=== PATIENT | female | born 1965 | race Caucasian/White ===

== ENCOUNTER 2024-01-11 09:18 | Outpatient (CLI) | payer BC, SELFPAY ==
--- NOTE | 2024-01-11 11:11 | W.ANESCHARGE ---
Anesthesia Charges Start Date/Time Anesthesia Start Date: 01/11/24 Anesthesia Start Time: 10:16 Stop Date/Time Anesthesia Stop Date: 01/11/24 Anesthesia Stop Time: 11:02
== END 2024-01-11 09:19 | disposition home or self-care (01) ==
LOC: OP CLINIC 09:21
PROVIDERS: Visit Provider Surgery
DX: Z12.11 Encounter for screening for malignant neoplasm of colon (principal); K57.30 Diverticulosis of large intestine without perforation or abscess without bleeding; Z80.0 Family history of malignant neoplasm of digestive organs
CPT/HCPCS: 00812; 45378; J2704